=== PATIENT | male | born 1990 | race Caucasian/White ===

== ENCOUNTER 2020-05-22 01:02 | Emergency (ER) | payer OTHER, SELFPAY ==
--- NOTE | 2020-05-22 | XR_ITS ---
EXAMINATION: XR FINGER, RIGHT CLINICAL INFORMATION: Swelling COMPARISON: None TECHNIQUE: 3 views of the right hand second digit. FINDINGS: No fracture or dislocation. Alignment is anatomic. Joint spaces are maintained. Prominent soft tissue swelling at the second digit proximal interphalangeal joint. No radiopaque foreign body. IMPRESSION: Prominent soft tissue swelling at the proximal interphalangeal joint. No osseous abnormality.
[2020-05-22 01:06] VITALS: BP 127/74; PULSE 86; RESP 14; TEMP 36.5; O2SAT 99
[2020-05-22 01:18] VITALS: BP 127/74; PULSE 86; RESP 14; TEMP 36.5; O2SAT 99; BMI 20.5
--- NOTE | 2020-05-22 01:52 | ED_ITS ---
HPI - Wound/Laceration General Chief Complaint: Wound/Laceration Stated Complaint: LAC ON FINGER Time Seen by Provider: 05/22/20 01:51 History of Present Illness HPI narrative: 30-year-old male with injury to the dorsal aspect of the right index finger a few days ago and is now experiencing redness and swelling over the PIP but denies any pain extending proximally on extension and flexion of the digit. In addition, he denies any fever, chills and states that his tetanus was within the past 2 years. Related Data Home Medications Medication Instructions Recorded Confirmed quetiapine [Seroquel] 100 mg PO DAILY 05/22/20 05/22/20 Previous Rx's Medication Instructions Recorded amoxicillin-pot clavulanate 1 tab PO Q12H 7 Days #14 tab 05/22/20 [Augmentin] Allergies Allergy/AdvReac Type Severity Reaction Status Date / Time No Known Allergies Allergy Unverified 05/01/20 16:58 Review of Systems Review of Systems: Pertinent positives and negatives as stated in the HPI. GEN: no fevers, chills, fatigue HEENT: no nasal congestion, sore throat, ear pain NEURO: no headache, dizziness, focal weakness PULM: no cough, shortness of breath CV: no chest pain, palpitations, LE edema ABD: no abdominal pain, nausea, vomiting, diarrhea : no dysuria, urgency, frequency SKIN: no rash ROS otherwise negative x 10 PMFSH Past Medical History Source: nursing notes reviewed Social History Social History Alcohol intake: unknown Smoking Status: Current every day smoker Use of substances other than those prescribed or required for medical reasons: No Advance Directives: No Advance Directives Information Provided: No Physical Exam 2 Vital Signs and I&O and Narrative: Vital Signs and I&O: Vital Signs Temp 97.7 F 05/22/20 01:18 Pulse 86 05/22/20 01:18 Resp 14 05/22/20 01:18 BP 127/74 05/22/20 01:18 Pulse Ox 99 05/22/20 01:18 Intake & Output 05/21/20 05/21/20 05/22/20 06:59 18:59 06:59 Weight 54.431 kg Body Mass Index 20.5 VITAL SIGNS: Reviewed. GENERAL: Well developed, well nourished, in no acute distress. HEAD: Normocephalic/atraumatic, EYES: PERRLA, EOMI intact without pain, no nystagmus/pallor/icterus noted EARS: Ext canals without abnormality, TMs non-bulging and non-erythematous NOSE: Nares patent bilateral OROPHARYNX: no oral lesions noted, posterior pharynx clear and non-erythematous without noted tonsillar enlargement/erythema/exudates NECK: Supple, no adenopathy LUNGS: Normal breath sounds. No adventitious sounds or accessory muscle use. SpO2<99> CARDIOVASCULAR: Regular rate and rhythm without noted murmurs, no JVD or lower extremity edema. ABDOMEN: Soft, non-tender, non-distended with bowel sounds. No rigidity. No guarding. No palpable masses or hernias noted MUSCULOSKELETAL: No tenderness, deformities, or effusions noted on gross inspection. EXTREMITIES: No cyanosis, clubbing or edema. SKIN: Inspection of the skin reveals no rashes, ulcerations, jaundice, pallor, or petechiae. NEUROLOGIC: Alert and oriented x 4. Strength and sensation to light touch were grossly intact x 4. Course Course Course Narrative: this is a 30-year-old male with an injury to the dorsal aspect of the right index finger and subsequent soft tissue swelling without edema or evidence on clinical exam of tenosynovitis. X-ray of the digit is negative for any acute fractures or dislocations but significant soft tissue swelling. Patient adamantly declines any intervention to remove the fluid from that finger, but was provided with initial antibiotics here in the emergency department and then discharged with a prescription to his pharmacy on file. Discharge Plan Discharge Clinical Impression: Soft tissue abscess Patient Disposition: Home, Self-Care Instructions: Abscess (ED) Additional Instructions: You were offered an incision and drainage of your right index finger today which you declined, in addition you declined numbing of the affected digit. Please do not hesitate to return should you change your mind or if the finger worsens despite being on antibiotics. Prescriptions: New amoxicillin-pot clavulanate [Augmentin] 875-125 mg tablet 1 tab PO Q12H 7 Days Qty: 14 RF: 0 No Action quetiapine [Seroquel] 100 mg Tablet 100 mg PO DAILY RF: 0 Referrals: Physician,Unknown [Primary Care Provider] - 2 days
[2020-05-22 02:00] VITALS: BP 111/77; PULSE 60; RESP 16; TEMP 37.1
[2020-05-22] MEDS: Amoxicillin/Potassium Clav 875 MG TABLET PO (04:54)
== END 2020-05-22 05:22 | disposition home or self-care (01) ==
PROVIDERS: Emergency Provider Student in an Organized Health Care Education/Training Program
DX: L02.511 Cutaneous abscess of right hand (principal); F17.200 Nicotine dependence, unspecified, uncomplicated
CPT/HCPCS: 73140; 99283; 99284

== ENCOUNTER 2020-11-29 13:44 | Emergency (ER) | payer OTHER, SELFPAY ==
--- NOTE | ~2020-11-29 | XR_ITS ---
EXAMINATION: XR finger LT min 2V, XR hand LT min 3V CLINICAL INFORMATION: Injury. Pinky injury COMPARISON: None. TECHNIQUE: 3 views of the left hand. Lateral view of the left fifth finger. FINDINGS: There is a 3 mm metallic foreign body that projects over the thenar soft tissues of the left hand. No fracture or dislocation seen. Normal mineralization and alignment. XR/XR hand LT min 3V IMPRESSION: No acute osseous abnormality. There is a 3 mm metallic foreign body that projects over the thenar soft tissues of the left hand.
--- NOTE | ~2020-11-29 | XR_ITS ---
EXAMINATION: XR finger LT min 2V, XR hand LT min 3V CLINICAL INFORMATION: Injury. Pinky injury COMPARISON: None. TECHNIQUE: 3 views of the left hand. Lateral view of the left fifth finger. FINDINGS: There is a 3 mm metallic foreign body that projects over the thenar soft tissues of the left hand. No fracture or dislocation seen. Normal mineralization and alignment. XR/XR finger LT min 2V IMPRESSION: No acute osseous abnormality. There is a 3 mm metallic foreign body that projects over the thenar soft tissues of the left hand.
[2020-11-29 13:50] VITALS: BP 121/68; PULSE 105; RESP 18; TEMP 36.7; O2SAT 99; BMI 20.5
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
[2020-11-29] MEDS: Ibuprofen 600 MG TABLET PO (15:44)
== END 2020-11-29 15:47 | disposition home or self-care (01) ==
PROVIDERS: Emergency Provider Emergency Medicine
DX: S61.207A Unspecified open wound of left little finger without damage to nail, initial encounter (principal); S60.415A Abrasion of left ring finger, initial encounter; W45.8XXA Other foreign body or object entering through skin, initial encounter; Y93.55 Activity, bike riding; Y92.480 Sidewalk as the place of occurrence of the external cause; Y99.9 Unspecified external cause status
CPT/HCPCS: 73130; 73140; 99283; 99284

== ENCOUNTER 2021-09-26 06:20 | Emergency (ER) | payer OTHER, SELFPAY ==
[2021-09-26 06:35] VITALS: BP 147/73; PULSE 65; RESP 16; TEMP 36.8; O2SAT 96; BMI 22.8
--- NOTE | 2021-09-26 06:37 | ED_ITS ---
HPI - Overdose General Chief Complaint: Overdose Stated Complaint: OD Time Seen by Provider: 09/26/21 06:22 History of Present Illness HPI Narrative: Patient is a 31-year-old male found in the house significant other complaint patient was using heroin subsequently went on responsive. Narcan was given prior to arrival. On arrival patient lethargic Related Data Home Medications Medication Instructions Recorded Confirmed quetiapine 100 mg tablet (Seroquel) 100 mg PO DAILY 05/22/20 05/22/20 Previous Rx's Medication Instructions Recorded amoxicillin 875 mg-potassium 1 tab PO Q12H 7 Days #14 tab 05/22/20 clavulanate 125 mg tablet (Augmentin) ibuprofen 600 mg tablet 600 mg PO Q6H PRN #20 tab 11/29/20 oxycodone-acetaminophen 5 mg-325 1 tab PO Q6H PRN #7 tab 11/29/20 mg tablet (Percocet) Allergies Allergy/AdvReac Type Severity Reaction Status Date / Time No Known Allergies Allergy Unverified 05/01/20 16:58 Review of Systems Review of Systems: [facility] Past Medical History Medical History Methadone dependence Social History Social History Alcohol intake: unknown Patient Tobacco Use Status: Current everyday Tobacco user Use of substances other than those prescribed or required for medical reasons: Yes Substance Use Type: Heroin Substance Use Frequency: Daily Advance Directives: No Advance Directives Information Provided: No Physical Exam Vital Signs: Vital Signs: Last Vital Signs Temp 98.3 F 09/26/21 06:35 Pulse 61 09/26/21 08:12 Resp 16 09/26/21 08:12 BP 107/56 L 09/26/21 09:11 Pulse Ox 98 09/26/21 08:12 BMI result Body Mass Index 22.8 Appearance: Lethargic, arousable to painful stimuli, No acute distress. Eyes: Pupils equal, round and reactive to light. ENT: Pharynx normal. Neck: Normal inspection. Neck supple. No lymph nodes noted. No crepitus CVS: Normal heart rate and rhythm. Pulses normal. Normal S1 and S2 Respiratory: No respiratory distress. Breath sounds normal. No Wheezing. No rales Abdomen: Soft and nontender. No rigidity. No distention. good BS x4 Skin: Skin warm and dry. Normal skin color. Normal skin turgor. Multiple track perez noted in bilateral upper and lower extremity Extremities: No lower extremity edema. Neurovascular intact to all extremities. No Lacerations. No Rash Neuro: Lethargic, wakes up to painful stimuli moving all extremities MDM - Overdose MDM Narrative Medical decision making narrative: Patient at 10:30 is awake alert no distress wants to leave. Does not want detox. Patient told to stop using recreational drugs. Given a Narcan to take home. In stable condition. Discharge Plan Discharge Clinical Impression: Cocaine intoxication, Drug overdose Patient Disposition: Home, Self-Care Instructions: Cocaine Abuse (ED), Polysubstance Abuse (ED), Opioid Safety (ED), Opioid Use Disorder (ED) Prescriptions: No Action quetiapine [Seroquel] 100 mg Tablet 100 mg PO DAILY 0RF amoxicillin-pot clavulanate [Augmentin] 875-125 mg tablet 1 tab PO Q12H 7 Days Qty: 14 0RF oxycodone-acetaminophen [Percocet] 5-325 mg tablet 1 tab PO Q6H PRN (Reason: pain) Qty: 7 0RF ibuprofen 600 mg tablet 600 mg PO Q6H PRN (Reason: pain) Qty: 20 0RF Referrals: Physician,Unknown J [Primary Care Provider] - 2 days (Please go to detox. Using heroin using cocaine can kill you.)
[2021-09-26 08:12] VITALS: BP 89/55; PULSE 61; RESP 16; O2SAT 98
--- NOTE | 2021-09-26 08:13 | PC.NURSE ---
pt sleeping but does wake up to voice command, pt denies pain, reports doing heroin and xanax two bars denies si/hi pt appearance is very disheveled/poor hygiene
[2021-09-26 09:11] VITALS: BP 107/56
--- NOTE | 2021-09-26 10:08 | PC.NURSE ---
carol from the recovery team at bedside
--- NOTE | 2021-09-26 10:53 | HO.SUDE ---
SUDE Patient is a 31 year old Bulgarian speaking male who presented to [facility] via EMS after an accidental overdose. Patient reports he is currently on methadone maintenance and receives 71mg. Patient reports he is trying to get his dose raised. Discussed harm reduction with patient and the risk of overdose when combining opiates and benzodiazepines. Patient reports he plans to stop using after what happened today. Patient reports he does not use benzos frequently. Patient reports previous overdoses however is unable to specify the number. Patient reports he started using heroin around 18 years of age. Patient reports he was sober for 4-5 years however relapsed one year ago and has been using around 2 days a week. Discussed recovery supports with patient. Patient declines ATS and is not interested in community supports. Patient reports he is not interested in groups and also not interested in therapy referrals. Discussed case with patient's ED provider.
[2021-09-26] MEDS: Naloxone HCl Nasal TAKE HOME 4 MG SPRAY NOSTRILALT (11:11)
== END 2021-09-26 11:22 | disposition home or self-care (01) ==
PROVIDERS: Emergency Provider Emergency Medicine Emergency Medical Services
DX: T40.1X1A Poisoning by heroin, accidental (unintentional), initial encounter (principal); R53.83 Other fatigue; Y92.009 Unspecified place in unspecified non-institutional (private) residence as the place of occurrence of the external cause; F14.120 Cocaine abuse with intoxication, uncomplicated; F11.20 Opioid dependence, uncomplicated; F17.200 Nicotine dependence, unspecified, uncomplicated
CPT/HCPCS: 99283; 99284

== ENCOUNTER 2024-12-20 04:45 | Emergency (ER) | payer OTHER, SELFPAY ==
[2024-12-20] MEDS: ondansetron HCL 4 MG/2 ML VIAL IVPUSH (04:59)
[2024-12-20 05:02] VITALS: BP 126/86; PULSE 83; RESP 16; TEMP 36.1; O2SAT 96; BMI 17.4
[2024-12-20] MEDS: Haloperidol Lactate 5 MG/ML VIAL IVPUSH (05:08)
[2024-12-20] MEDS: diphenhydrAMINE HCL 50 MG/ML VIAL 25 MG IVPUSH (05:08)
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
--- NOTE | 2024-12-20 05:37 | PC.NURSE ---
pt changed over by security and RN, pt wash up, medicated per mar, Iv placed
[2024-12-20 05:49] LABS: Basophils Percent Auto 0.2 % (0-2); Eosinophils Absolute Auto 0.2 X10*3/uL (0.0-0.4); Eosinophils Percent Auto 1.6 % (0-4); Hematocrit 41.8 % (42.0-52.0); Hemoglobin 14.2 g/dl (14.0-18.0); Imm Gran Abs Auto 0.03 X10*3/uL (0.00-0.03); Imm Gran Pct Auto 0.3 % (0.0-0.4); Lymphocytes Absolute Auto 2.3 X10*3/uL (1.2-4.9); Lymphocytes Percent Auto 24.3 % (20-40); MANUAL DIFF FLAG NO; Mean Corpuscular Hemoglobin 26.2 pg (27.0-33.0); Mean Platelet Volume 9.2 fL (9.4-12.4); Monocytes Absolute Auto 0.8 X10*3/uL (0.1-1.2); Monocytes Percent Auto 8.4 % (2-11); Neutrophils Absolute Auto 6.1 x10*3/uL (2.0-8.3); Neutrophils Percent Auto 65.2 % (45-73); Platelet Count 285 X10*3/uL (160-400); Red Blood Count 5.43 X10*6/uL (4.60-5.80); Red Cell Distribution Width 13.8 % (11.0-16.0); White Blood Count 9.4 X10*3/uL (4.8-10.8)
[2024-12-20 06:06] LABS: Alanine Aminotransferase 22 U/L (0-40); Albumin Level 4.6 g/dL (3.5-5.0); Anion Gap 17 (12-20); Aspartate Amino Transferase 27 U/L (5-37); Bilirubin Direct 0.1 mg/dL (0.0-0.5); Bilirubin Total 0.4 mg/dL (0.0-1.0); Blood Urea Nitrogen 18 mg/dL (9-16); Carbon Dioxide 25 mmol/L (22-29); Chloride 103 mmol/L (96-108); Creatinine Clr Calc Pharmacy 113.2; Estimated Glomerular Filt Rate > 60; Ethanol < 10 mg/dL; Glucose Random 100 mg/dL (60-115); Magnesium 2.3 mg/dL (1.6-2.6); Potassium 3.7 mmol/L (3.3-5.1); Sodium 141 mmol/L (135-145); Total Protein 8.7 g/dL (6.5-8.0)
[2024-12-20 06:13] LABS: Alkaline Phosphatase 98 U/L (39-117)
[2024-12-20] MEDS: 0.9 % Sodium Chloride 1,000 ML 999 ML IV (06:33)
--- NOTE | 2024-12-20 07:15 | PC.NURSE ---
pt is currently asleep, respirations even and unlabored,
[2024-12-20 09:17] VITALS: BP 118/67; PULSE 60; RESP 16; O2SAT 100
--- NOTE | 2024-12-20 09:34 | PC.NURSE ---
pt woken up, pt is requesting to go home does not want to speak with recovery team at this time, aware, pt is currently making phone calls for a ride
[2024-12-20] MEDS: Naloxone HCl Nasal TAKE HOME 4 MG SPRAY 8 MG NOSTRILALT (10:35)
[2024-12-20 10:41] VITALS: BP 118/67; PULSE 60; RESP 16; TEMP -17.7; TEMP 0; O2SAT 100
== END 2024-12-20 10:41 | disposition home or self-care (01) ==
PROVIDERS: Emergency Medicine; Emergency Provider Emergency Medicine Emergency Medical Services
DX: T40.1X1A Poisoning by heroin, accidental (unintentional), initial encounter (principal); R40.4 Transient alteration of awareness; F19.10 Other psychoactive substance abuse, uncomplicated; Y92.019 Unspecified place in single-family (private) house as the place of occurrence of the external cause; R11.2 Nausea with vomiting, unspecified; F11.20 Opioid dependence, uncomplicated; F17.210 Nicotine dependence, cigarettes, uncomplicated
CPT/HCPCS: 36415; 80048; 80076; 80307; 83735; 85025; 96361; 96374; 96375; 99284; 99285; J1200; J1630; J2405